=== PATIENT | male | born 1985 | race Caucasian/White ===

== ENCOUNTER → 2016-10-04 | Outpatient (CLI) | payer OTHER ==
[~2016-10-04] MED LIST: CORTEF20 MG PO; FEOSOL-DPS325 MG PO; FLORINEF0.1 MG PO; KLOR-CON 1010 MEQ PO; PROTONIX40 MG PO
== END | disposition home or self-care (01) ==
LOC: PTH.S 09-29 10:15
DX: E27.1 Primary adrenocortical insufficiency (principal)